=== PATIENT | female | born 1995 | race Caucasian/White ===

== ENCOUNTER 2021-03-20 21:06 | Emergency (ER) | payer OTHER ==
[2021-03-20 21:29] VITALS: BP 138/91; PULSE 110; TEMP 98; BMI 21.4
== END 2021-03-20 22:42 | disposition home or self-care (01) ==
LOC: FER 21:06
DX: S93.402A Sprain of unspecified ligament of left ankle, initial encounter (principal)
CPT/HCPCS: 73610-TC-LT-FY; 99283-25